=== PATIENT | female | born 1965 | race Caucasian/White ===

== ENCOUNTER 2020-02-09 18:06 | Emergency (ER) | payer BC ==
[~2020-02-09] VITALS: Ht 162.6 cm; Wt 74.4 kg
[2020-02-09 18:10] VITALS: Ht 162.6 cm; Wt 74.4 kg
[2020-02-09 19:38] VITALS: BP 153/91
== END 2020-02-09 19:38 | disposition home or self-care (01) ==
LOC: ED 18:06
DX: S50.02XA Contusion of left elbow, initial encounter (principal); M25.532 Pain in left wrist; M25.512 Pain in left shoulder; V19.9XXA Pedal cyclist (driver) (passenger) injured in unspecified traffic accident, initial encounter; Y93.55 Activity, bike riding; Y99.8 Other external cause status; Y92.410 Unspecified street and highway as the place of occurrence of the external cause